=== PATIENT | female | born 1955 | race African-American/Black ===

== ENCOUNTER 2019-08-01 21:34 | Inpatient (IN) | payer BC, MEDICAID ==
[~2019-08-01] VITALS: Ht 157.5 cm; Wt 116.6 kg
[~2019-08-01 21:34] MED LIST: AMLO10TA4; ASPI81TA47; FLUO10TA3; HYDR25TA
[2019-08-01] MEDS ORDERED: ONDANSETRON HCL 4MG/2ML INJ IV STA (22:07)
[2019-08-01] MEDS ORDERED: SODIUM CHLORIDE 0.9% 1,000 ML IV ONE (22:07)
[2019-08-01] MEDS ORDERED: KETOROLAC 15MG/ML VIAL IV ONE (22:15)
[2019-08-01 22:46] LABS: BASOPHILS % 0.4 % (0.0-2.0); EOSINOPHILS % 0.1 % (0.0-5.0); HEMATOCRIT. 38.5 % (36.0-48.0); HEMOGLOBIN. 13.4 g/dL (12.0-16.0); LYMPHOCYTES % 22.1 % (20.0-50.0); MEAN CORPUSCULAR HEMOGLOBIN 29.7 pg (28.0-32.0); MEAN CORPUSCULAR VOLUME 85.1 fL (81.0-99.0); MEAN PLATELET VOLUME 9.1 fl (7.4-10.4); MONOCYTES % 7.8 % (2.0-8.0); NEUTROPHILS % 69.6 % (40.0-76.0); PLATELET 261 x1000/uL (130-400); RED BLOOD CELL COUNT 4.52 mill/uL (4.2-5.4); RED CELL DISTRIBUTION WIDTH 13.1 % (11.6-14.6)
[2019-08-01 22:49] LABS: COLOR URINE DK YELLOW (YELLOW); KETONES URINE TRACE (NEGATIVE); LEUKOCYTE ESTERASE URINE TRACE (NEGATIVE); NITRITE URINE NEGATIVE (NEGATIVE); OCCULT BLOOD URINE 1+ (NEGATIVE); PH URINE 6.5 (4.5-8.0); PROTEIN URINE 1+ (NEGATIVE); SPECIFIC GRAVITY URINE 1.035 (1.005-1.030)
[2019-08-01 22:50] LABS: CLARITY URINE HAZY (CLEAR)
[2019-08-01 22:53] LABS: CHLORIDE 103 mEq/L (98-107)
[2019-08-01] MEDS ORDERED: MAGNESIUM 1 G PREMIX 100 ML IV ONE (23:15)
[2019-08-01] MEDS ORDERED: KCL 20MEQ/100ML PREMIX 100 ML IV ONE (23:15)
[2019-08-02] MEDS ORDERED: ASPIRIN 325MG EC TABLET PO ONE (01:15)
[2019-08-02] MEDS ORDERED: MORPHINE SULFATE 4 MG/ML CPJ (NOT FOR IM USE) IV PRN (05:15)
[2019-08-02] MEDS ORDERED: DEXT 5%/0.45% NACL 1000ML 1,000 ML IV SCH (05:15)
[2019-08-02] MEDS: PANTOPRAZOLE SODIUM 40 MG/VIAL IV SCH (05:48)
[2019-08-02] MEDS ORDERED: LEVOFLOXACIN 500MG PREMIX 100 ML IV SCH (06:00)
[2019-08-02 09:18] VITALS: BP 160/65
[2019-08-02 09:40] VITALS: BP 160/65
[2019-08-02] MEDS ORDERED: ONDANSETRON HCL 4MG/2ML INJ IV PRN (10:30)
[2019-08-02] MEDS: MORPHINE SULFATE 2 MG/ML CPJ (NOT FOR IM USE) IV PRN ×4 (11:17→23:52)
[2019-08-02 12:00] VITALS: BP 120/77
[2019-08-02] MEDS ORDERED: POTASSIUM CHLORIDE INJ 40 MEQ in DEXT 5% WATER 250 ML IV ONE (15:00)
[2019-08-02] MEDS: DEXT 5%/0.45% NACL 1000ML 1,000 ML IV SCH (15:32)
[2019-08-02 16:00] VITALS: BP 92/54
[2019-08-02 16:35] LABS: BASOPHILS % 0.3 % (0.0-2.0); EOSINOPHILS % 0.8 % (0.0-5.0); HEMATOCRIT. 37.1 % (36.0-48.0); HEMOGLOBIN. 12.7 g/dL (12.0-16.0); LYMPHOCYTES % 25.9 % (20.0-50.0); MEAN CORPUSCULAR HEMOGLOBIN 29.4 pg (28.0-32.0); MEAN CORPUSCULAR VOLUME 86.3 fL (81.0-99.0); MEAN PLATELET VOLUME 9.3 fl (7.4-10.4); MONOCYTES % 11.5 % (2.0-8.0); NEUTROPHILS % 61.5 % (40.0-76.0); PLATELET 258 x1000/uL (130-400); RED BLOOD CELL COUNT 4.31 mill/uL (4.2-5.4); RED CELL DISTRIBUTION WIDTH 13.4 % (11.6-14.6)
[2019-08-02 16:37] LABS: CHLORIDE 104 mEq/L (98-107)
[2019-08-02 16:43] LABS: INR 1.1; PROTHROMBIN TIME 11.6 sec (9.6-11.0)
[2019-08-02] MEDS: PIPERACILLIN/TAZOBACTAM 3.375 G in DEXT 5% WATER 100 ML IV SCH (18:36)
[2019-08-02 20:00] VITALS: BP 146/85
[2019-08-02] MEDS: ENOXAPARIN 30MG/0.3ML SYR SUBCUT SCH (20:47)
[2019-08-02] MEDS ORDERED: POTASSIUM CHLORIDE INJ 40 MEQ in DEXT 5% WATER 250 ML IV NR (21:00)
[2019-08-03] VITALS: BP 143/64
[2019-08-03] MEDS: PIPERACILLIN/TAZOBACTAM 3.375 G in DEXT 5% WATER 100 ML IV SCH ×4 (00:03→18:27)
[2019-08-03] MEDS: DEXT 5%/0.45% NACL 1000ML 1,000 ML IV SCH ×2 (00:03→13:10)
[2019-08-03 04:00] VITALS: BP 120/66
[2019-08-03] MEDS: MORPHINE SULFATE 2 MG/ML CPJ (NOT FOR IM USE) IV PRN ×4 (04:13→21:22)
[2019-08-03] MEDS ORDERED: BACITRACIN 50,000 UNITS/VIAL ONE (07:02)
[2019-08-03] MEDS ORDERED: INDOCYANINE GREEN 25 MG VIAL IV ONE (07:02)
[2019-08-03] MEDS ORDERED: LIDOCAINE HCL 1% 20ML VIAL (Pyxis) INJ ONE (07:02)
[2019-08-03] MEDS ORDERED: BUPIVACAINE HCL/PF 0.5% (5MG/ML) 10ML ONE (07:02)
[2019-08-03] MEDS ORDERED: SKIN ADHESIVE 0.7 GM EA TOP ONE (07:03)
[2019-08-03 07:16] LABS: BASOPHILS % 0.5 % (0.0-2.0); HEMATOCRIT. 34.8 % (36.0-48.0); HEMOGLOBIN. 12.1 g/dL (12.0-16.0); LYMPHOCYTES % 24.3 % (20.0-50.0); MEAN CORPUSCULAR VOLUME 86.3 fL (81.0-99.0); MEAN PLATELET VOLUME 8.9 fl (7.4-10.4); MONOCYTES % 9.8 % (2.0-8.0); NEUTROPHILS % 64.4 % (40.0-76.0); PLATELET 230 x1000/uL (130-400); RED BLOOD CELL COUNT 4.03 mill/uL (4.2-5.4)
[2019-08-03 07:28] LABS: CHLORIDE 103 mEq/L (98-107)
[2019-08-03 08:00] VITALS: BP 119/76
[2019-08-03] MEDS: PANTOPRAZOLE SODIUM 40 MG/VIAL IV SCH (08:55)
[2019-08-03] MEDS ORDERED: FENTANYL CITRATE/PF 50MCG/ML 2ML VIAL ONE (09:37)
[2019-08-03] MEDS ORDERED: NEOSTIGMINE METHYLSULFATE 1MG/ML 10 ML VIAL ONE (09:37)
[2019-08-03] MEDS ORDERED: MIDAZOLAM HCL 2 MG/2 ML VIAL ONE (09:38)
[2019-08-03] MEDS ORDERED: PROPOFOL 200MG/20ML VIAL IV ONE (09:38)
[2019-08-03] MEDS ORDERED: GLYCOPYRROLATE 0.2 MG/ML 2ML VIAL ONE (09:38)
[2019-08-03] MEDS ORDERED: ROCURONIUM BROMIDE 10MG/ML VIAL 5ML IV ONE ×2 (09:38→13:08)
[2019-08-03] MEDS ORDERED: DEXAMETHASONE 4MG/ML 1ML VIAL ONE (10:11)
[2019-08-03] MEDS ORDERED: ONDANSETRON HCL 4MG/2ML INJ ONE (10:11)
[2019-08-03] MEDS ORDERED: HYDROMORPHONE HCL/PF 2MG/ML (OR) ONE (10:12)
[2019-08-03] MEDS ORDERED: ONDANSETRON HCL 4MG/2ML INJ IV PRN (10:45)
[2019-08-03] MEDS ORDERED: MEPERIDINE HCL/PF 25MG/ML CPJ IV PRN (10:45)
[2019-08-03] MEDS ORDERED: HYDROMORPHONE HCL/PF 2MG/ML CPJ IV PRN (10:45)
[2019-08-03] MEDS ORDERED: LABETALOL 5MG/ML SYR 20 MG/4 ML SYRINGE IV PRN (10:45)
[2019-08-03 16:00] VITALS: BP_SYST 106; BP_SYST 136; BP_DIAS 61; BP_DIAS 68
[2019-08-03 20:00] VITALS: BP 128/73
[2019-08-04] VITALS: BP 139/93
[2019-08-04] MEDS: PIPERACILLIN/TAZOBACTAM 3.375 G in DEXT 5% WATER 100 ML IV SCH ×5 (00:08→23:51)
[2019-08-04] MEDS: MORPHINE SULFATE 2 MG/ML CPJ (NOT FOR IM USE) IV PRN ×7 (02:49→20:22)
[2019-08-04 04:00] VITALS: BP 137/80
[2019-08-04 06:46] LABS: CHLORIDE 102 mEq/L (98-107)
[2019-08-04 06:49] LABS: BASOPHILS % 0.2 % (0.0-2.0); EOSINOPHILS % 0.1 % (0.0-5.0); HEMATOCRIT. 34.8 % (36.0-48.0); LYMPHOCYTES % 20.4 % (20.0-50.0); MEAN CORPUSCULAR HEMOGLOBIN 29.8 pg (28.0-32.0); MEAN CORPUSCULAR VOLUME 86.1 fL (81.0-99.0); MEAN PLATELET VOLUME 9.4 fl (7.4-10.4); MONOCYTES % 9.8 % (2.0-8.0); NEUTROPHILS % 69.5 % (40.0-76.0); PLATELET 253 x1000/uL (130-400); RED BLOOD CELL COUNT 4.04 mill/uL (4.2-5.4)
[2019-08-04 08:00] VITALS: BP 120/63
[2019-08-04] MEDS: PANTOPRAZOLE SODIUM 40 MG/VIAL IV SCH (08:43)
[2019-08-04] MEDS: ENOXAPARIN 30MG/0.3ML SYR SUBCUT SCH ×2 (09:44→20:17)
[2019-08-04] MEDS: DEXT 5%/0.45% NACL 1000ML 1,000 ML IV SCH (09:45)
[2019-08-04] MEDS ORDERED: POTASSIUM CHLORIDE 20MEQ TABLET SR PO NR (11:00)
[2019-08-04] MEDS ORDERED: METOCLOPRAMIDE HCL 10MG/2ML VIAL IV SCH (13:30)
[2019-08-04] MEDS ORDERED: LACTULOSE 20G/30ML UDC PO NR (13:30)
[2019-08-04 14:33] VITALS: BP 112/71
[2019-08-04 16:00] VITALS: BP 98/46
[2019-08-04] MEDS ORDERED: BISACODYL 10MG SUPP PR PRN (17:15)
[2019-08-04] MEDS ORDERED: NA PHOS,M-B/NA PHOS,DI-BA ENEMA 118ML PR PRN (17:15)
[2019-08-04] MEDS ORDERED: DOCUSATE SODIUM 250MG CAPSULE PO NR (17:30)
[2019-08-04 20:00] VITALS: BP 119/71
[2019-08-04] MEDS ORDERED: TEMAZEPAM 15MG CAPSULE PO PRN (21:15)
[2019-08-05] VITALS: BP 137/62
[2019-08-05] MEDS: MORPHINE SULFATE 2 MG/ML CPJ (NOT FOR IM USE) IV PRN ×3 (00:07→07:58)
[2019-08-05 04:00] VITALS: BP 154/85
[2019-08-05] MEDS: PIPERACILLIN/TAZOBACTAM 3.375 G in DEXT 5% WATER 100 ML IV SCH ×2 (05:18→11:08)
[2019-08-05 07:25] LABS: HEMOGLOBIN 10.7 g/dL (12.0-16.0); MEAN CORPUSCULAR HEMOGLOBIN 29.6 pg (28.0-32.0); MEAN CORPUSCULAR VOLUME 85.9 fL (81.0-99.0); PLATELET 256 x1000/uL (130-400); RED BLOOD CELL COUNT 3.61 mill/uL (4.2-5.4); RED CELL DISTRIBUTION WIDTH 13.2 % (11.6-14.6)
[2019-08-05 07:45] LABS: CHLORIDE 106 mEq/L (98-107)
[2019-08-05] MEDS: PANTOPRAZOLE SODIUM 40 MG/VIAL IV SCH (07:57)
[2019-08-05 08:00] VITALS: BP 121/57
[2019-08-05] MEDS ORDERED: DOCUSATE SODIUM SUGAR FREE 100MG/10ML UDC NG SCH (09:00)
[2019-08-05] MEDS: ENOXAPARIN 30MG/0.3ML SYR SUBCUT SCH (11:07)
[2019-08-05 12:00] VITALS: BP 125/60
[2019-08-05] MEDS ORDERED: DOCU-138 MT (13:28)
[2019-08-05] MEDS ORDERED: LEVO500T2 MT (13:28)
[2019-08-05] MEDS ORDERED: FAMO-135 PO (13:28)
[2019-08-05] MEDS ORDERED: TRAM50TA94 MT (13:28)
[2019-08-05] MEDS ORDERED: METR500T MT (13:28)
[2019-08-05 14:27] VITALS: BP 131/70
[2019-08-05] MEDS ORDERED: FAMOTIDINE 20MG/2ML VIAL IV SCH (21:00)
== END 2019-08-05 16:30 | disposition home or self-care (01) | DRG 418 ==
LOC: ER 21:34 → 5WST 23:50 → ENRESERV 08-02 08:04
PROVIDERS: ADMIT Internal Medicine; ATTEND Internal Medicine
PROC: 0FT44ZZ Resection of Gallbladder, Percutaneous Endoscopic Approach (ICD-10-PCS; principal; 2019-08-03)
PROC: 8E0W4CZ Robotic Assisted Procedure of Trunk Region, Percutaneous Endoscopic Approach (ICD-10-PCS; 2019-08-03)
DX: K80.12 Calculus of gallbladder with acute and chronic cholecystitis without obstruction (principal); Z68.42 Body mass index [BMI] 45.0-49.9, adult; E66.01 Morbid (severe) obesity due to excess calories; K59.00 Constipation, unspecified; E87.6 Hypokalemia; R07.9 Chest pain, unspecified; I10 Essential (primary) hypertension; Z85.43 Personal history of malignant neoplasm of ovary; Z90.710 Acquired absence of both cervix and uterus; Z88.5 Allergy status to narcotic agent
CPT/HCPCS: 36415; 71045; 74018; 74176; 76705; 80048; 80053; 81003; 83735; 84484; 85025; 85027; 88304; 93005; 99285; C9113; J1100; J1170; J1650; J1885; J1956; J2250; J2270; J2405; J2543; J2704; J2710; J2765; J3010; J3475; J3480; J3490; J7030; J7060; Q9957